=== PATIENT | female | born 1985 | race Caucasian/White ===

== ENCOUNTER 2017-07-09 00:11 | Emergency (ER) | payer SELFPAY ==
[~2017-07-09 00:11] MED LIST: ALPR1TAB2 PO
[2017-07-09] MEDS ORDERED: HYDROCODONE/ACETAMINOPHEN 10/325 MG TAB ONE (01:21)
== END 2017-07-09 02:18 | disposition home or self-care (01) ==
LOC: EDH 00:11
DX: S43.492A Other sprain of left shoulder joint, initial encounter (principal); J45.909 Unspecified asthma, uncomplicated; Z88.0 Allergy status to penicillin; Z72.0 Tobacco use; W18.39XA Other fall on same level, initial encounter; Y93.89 Activity, other specified; Y92.89 Other specified places as the place of occurrence of the external cause; Y99.8 Other external cause status
CPT/HCPCS: 73030

== ENCOUNTER 2017-08-20 08:36 | Emergency (ER) | payer MEDICAID, OTHER ==
[2017-08-20 09:44] LABS: APPEARANCE,URINE Clear (CLEAR); BILIRUBIN,URINE Negative (NEGATIVE); COLOR,URINE Yellow (YELLOW); GLUCOSE, URINE (UA) Negative (NEGATIVE); KETONES,URINE Negative (NEGATIVE); LEUKOCYTE ESTERASE ,URINE Negative (NEGATIVE); NITRATE,URINE Negative (NEGATIVE); OCCULT BLOOD,URINE Negative (NEGATIVE); PROTEIN,URINE Negative (NEGATIVE)
[2017-08-20] MEDS ORDERED: ACETAMINOPHEN EXTRA STRENGTH 500 MG TABLET ONE (10:46)
== END 2017-08-20 10:49 | disposition home or self-care (01) ==
LOC: EDH 08:36
DX: J06.9 Acute upper respiratory infection, unspecified (principal); J45.909 Unspecified asthma, uncomplicated; F43.10 Post-traumatic stress disorder, unspecified; Z72.0 Tobacco use; Z88.0 Allergy status to penicillin
CPT/HCPCS: 81003; 81025; 87804

== ENCOUNTER 2017-11-09 21:02 | Emergency (ER) | payer MEDICAID ==
[2017-11-09 22:57] LABS: APPEARANCE,URINE Clear (CLEAR); BILIRUBIN,URINE Negative (NEGATIVE); COLOR,URINE Yellow (YELLOW); GLUCOSE, URINE (UA) Negative (NEGATIVE); KETONES,URINE Negative (NEGATIVE); LEUKOCYTE ESTERASE ,URINE Negative (NEGATIVE); NITRATE,URINE Negative (NEGATIVE); OCCULT BLOOD,URINE Negative (NEGATIVE); PROTEIN,URINE Negative (NEGATIVE); UROBILINOGEN,URINE 0.2 mg/dL (0.2-1.0)
[2017-11-09 23:05] LABS: AMPHET/METH SCREEN,URINE NEGATIVE (NEGATIVE); BARBITURATE SCREEN, URINE NEGATIVE (NEGATIVE); BENZODIAZEPINES SCREEN,URINE POSITIVE (NEGATIVE); CANNABINOID SCREEN,URINE NEGATIVE (NEGATIVE); COCAINE SCREEN,URINE POSITIVE (NEGATIVE); OPIATE SCREEN,URINE POSITIVE (NEGATIVE); PHENCYCLIDINE SCREEN,URINE NEGATIVE (NEGATIVE)
== END 2017-11-09 21:32 | disposition home or self-care (01) ==
LOC: EDH 21:02
DX: M62.830 Muscle spasm of back (principal); J45.909 Unspecified asthma, uncomplicated; F43.10 Post-traumatic stress disorder, unspecified; Z88.0 Allergy status to penicillin; Z90.710 Acquired absence of both cervix and uterus; Z90.49 Acquired absence of other specified parts of digestive tract; Z72.0 Tobacco use
CPT/HCPCS: 72100; 80305; 81003

== ENCOUNTER 2017-11-23 19:15 | Emergency (ER) | payer MEDICAID ==
[2017-11-23] MEDS ORDERED: IBUPROFEN 200 MG TAB ONE (19:40)
[2017-11-23] MEDS ORDERED: IBUPROFEN 400 MG TABLET ONE (19:40)
[2017-11-23] MEDS ORDERED: TETANUS/DIPHTHERIA TOXOID [ADULT] 0.5 ML VIAL IM ONE (19:41)
[2017-11-23] MEDS ORDERED: LIDOCAINE HCL 2% 20ML ONE (20:11)
== END 2017-11-23 20:57 | disposition home or self-care (01) ==
LOC: EDH 19:15
DX: S81.831A Puncture wound without foreign body, right lower leg, initial encounter (principal); J45.909 Unspecified asthma, uncomplicated; F43.10 Post-traumatic stress disorder, unspecified; Z88.0 Allergy status to penicillin; Z72.0 Tobacco use; W20.8XXA Other cause of strike by thrown, projected or falling object, initial encounter; Y93.89 Activity, other specified; Y92.098 Other place in other non-institutional residence as the place of occurrence of the external cause; Y99.8 Other external cause status
CPT/HCPCS: 73590; 90471; 90714; 99284; J3490

== ENCOUNTER 2018-02-24 19:00 | Emergency (ER) | payer MEDICAID ==
[2018-02-24] MEDS ORDERED: KETOROLAC TROMETHAMINE 30MG/ML ONE (19:55)
[2018-02-24] MEDS ORDERED: HYDROXYZINE HCL 25 MG TABLET ONE (20:04)
== END 2018-02-24 20:31 | disposition home or self-care (01) ==
LOC: EDH 19:00
DX: S60.021A Contusion of right index finger without damage to nail, initial encounter (principal); S60.031A Contusion of right middle finger without damage to nail, initial encounter; J45.909 Unspecified asthma, uncomplicated; F32.9 Major depressive disorder, single episode, unspecified; F43.10 Post-traumatic stress disorder, unspecified; Z88.0 Allergy status to penicillin; Z90.49 Acquired absence of other specified parts of digestive tract; Z90.710 Acquired absence of both cervix and uterus; Z72.0 Tobacco use; X58.XXXA Exposure to other specified factors, initial encounter; Y93.89 Activity, other specified; Y92.099 Unspecified place in other non-institutional residence as the place of occurrence of the external cause; Y99.8 Other external cause status
CPT/HCPCS: 73130; 96372; 99284; J1885

== ENCOUNTER 2018-02-28 02:38 | Emergency (ER) | payer MEDICAID ==
[2018-02-28] MEDS ORDERED: TETANUS/DIPHTHERIA TOXOID [ADULT] 0.5 ML VIAL IM ONE (02:57)
== END 2018-02-28 03:32 | disposition home or self-care (01) ==
LOC: EDH 02:38
DX: S51.811A Laceration without foreign body of right forearm, initial encounter (principal); J45.909 Unspecified asthma, uncomplicated; F41.9 Anxiety disorder, unspecified; F32.9 Major depressive disorder, single episode, unspecified; F43.10 Post-traumatic stress disorder, unspecified; Z90.49 Acquired absence of other specified parts of digestive tract; Z90.710 Acquired absence of both cervix and uterus; Z72.0 Tobacco use; Z88.0 Allergy status to penicillin; X78.8XXA Intentional self-harm by other sharp object, initial encounter; Y93.89 Activity, other specified; Y92.098 Other place in other non-institutional residence as the place of occurrence of the external cause; Y99.8 Other external cause status
CPT/HCPCS: 12002; 90471; 90714

== ENCOUNTER 2018-03-03 01:59 | Emergency (ER) | payer MEDICAID ==
[2018-03-03] MEDS ORDERED: DOXYCYCLINE HYCLATE 100 MG TABLET PO ONE (03:25)
== END 2018-03-03 03:41 | disposition home or self-care (01) ==
LOC: EDH 01:59
DX: T81.33XA Disruption of traumatic injury wound repair, initial encounter (principal); J45.909 Unspecified asthma, uncomplicated; F43.10 Post-traumatic stress disorder, unspecified; F41.9 Anxiety disorder, unspecified; F32.9 Major depressive disorder, single episode, unspecified; Z88.0 Allergy status to penicillin; Z72.0 Tobacco use; Y83.8 Other surgical procedures as the cause of abnormal reaction of the patient, or of later complication, without mention of misadventure at the time of the procedure; Y92.89 Other specified places as the place of occurrence of the external cause
CPT/HCPCS: 73130

== ENCOUNTER 2018-03-14 10:28 | Emergency (ER) | payer MEDICAID | END 2018-03-14 11:21 | disposition home or self-care (01) | LOC: EDH 10:28 | DX: S51.811D Laceration without foreign body of right forearm, subsequent encounter (principal); J45.909 Unspecified asthma, uncomplicated; F43.10 Post-traumatic stress disorder, unspecified; F41.9 Anxiety disorder, unspecified; F32.9 Major depressive disorder, single episode, unspecified; Z88.0 Allergy status to penicillin; Z90.710 Acquired absence of both cervix and uterus; Z72.0 Tobacco use; X58.XXXD Exposure to other specified factors, subsequent encounter | CPT/HCPCS: 99281 ==

== ENCOUNTER 2018-06-12 14:36 | Emergency (ER) | payer MEDICAID ==
[2018-06-12] MEDS ORDERED: ACETAMINOPHEN-CODEINE 300/30MG TAB ONE (16:03)
== END 2018-06-12 16:11 | disposition home or self-care (01) ==
LOC: EDH 14:36
DX: S61.412A Laceration without foreign body of left hand, initial encounter (principal); F41.9 Anxiety disorder, unspecified; J45.909 Unspecified asthma, uncomplicated; F43.10 Post-traumatic stress disorder, unspecified; F32.9 Major depressive disorder, single episode, unspecified; Z88.0 Allergy status to penicillin; Z72.0 Tobacco use; W26.0XXA Contact with knife, initial encounter; Y93.89 Activity, other specified; Y92.69 Other specified industrial and construction area as the place of occurrence of the external cause; Y99.8 Other external cause status
CPT/HCPCS: 12001; 73130

== ENCOUNTER 2019-04-09 21:44 | Emergency (ER) | payer MEDICAID, OTHER ==
[2019-04-09] MEDS ORDERED: KETOROLAC TROMETHAMINE 60 MG/2 ML VIAL ONE (22:46)
[2019-04-09] MEDS ORDERED: DEXAMETHASONE SOD PHOSPHATE 10MG/ML 1ML VIAL ONE (22:46)
== END 2019-04-10 00:04 | disposition home or self-care (01) ==
LOC: EDH 21:44
DX: M25.562 Pain in left knee (principal); F41.9 Anxiety disorder, unspecified; J45.909 Unspecified asthma, uncomplicated; F32.9 Major depressive disorder, single episode, unspecified; F43.10 Post-traumatic stress disorder, unspecified; Z90.49 Acquired absence of other specified parts of digestive tract; Z90.710 Acquired absence of both cervix and uterus; Z72.0 Tobacco use
CPT/HCPCS: 29505; 73562; 96372 ×2; 99284; J1100; J1885

== ENCOUNTER 2019-08-14 17:40 | Inpatient (IN) | payer OTHER ==
[~2019-08-14] VITALS: Ht 170.2 cm; Wt 66.8 kg
[2019-08-14 18:53] LABS: BASOPHILS % (AUTO) 0.3 % (0.0-5.0); EOSINOPHILS % (AUTO) 0.3 % (0.0-8.0); HEMATOCRIT 38.8 % (36-48); LYMPHOCYTES % (AUTO) 8.5 % (21.0-51.0); MEAN CORPUSCULAR HEMOGLOBIN 31.6 pg (27.0-33.0); MEAN CORPUSCULAR HGB CONC 33.5 g/dL (32.0-36.0); MEAN CORPUSCULAR VOLUME 94.4 fL (79-99); MONOCYTES % (AUTO) 5.1 % (3.0-13.0); NEUTROPHILS % (AUTO) 85.4 % (40.0-77.0); PLATELET COUNT (AUTO) 208 K/uL (130-400); RED BLOOD CELL COUNT(AUTO) 4.11 MIL/uL (4.00-5.50); RED CELL DISTRIBUTION WIDTH 12.4 % (11.0-15.5); WHITE BLOOD COUNT (AUTO) 11.9 K/uL (4.8-10.8)
[2019-08-14 18:56] LABS: APPEARANCE,URINE Clear (CLEAR); BILIRUBIN,URINE Negative (NEGATIVE); COLOR,URINE Yellow (YELLOW); GLUCOSE, URINE (UA) Negative (NEGATIVE); KETONES,URINE Negative (NEGATIVE); LEUKOCYTE ESTERASE ,URINE Moderate (NEGATIVE); NITRATE,URINE Negative (NEGATIVE); OCCULT BLOOD,URINE Negative (NEGATIVE); PROTEIN,URINE Trace mg/dL (NEGATIVE); UROBILINOGEN,URINE 0.2 mg/dL (0.2-1.0)
[2019-08-14 19:03] LABS: AMPHET/METH SCREEN,URINE NEGATIVE (NEGATIVE); BARBITURATE SCREEN, URINE NEGATIVE (NEGATIVE); BENZODIAZEPINES SCREEN,URINE POSITIVE (NEGATIVE); CANNABINOID SCREEN,URINE NEGATIVE (NEGATIVE); COCAINE SCREEN,URINE NEGATIVE (NEGATIVE); OPIATE SCREEN,URINE NEGATIVE (NEGATIVE); PHENCYCLIDINE SCREEN,URINE NEGATIVE (NEGATIVE)
[2019-08-14 19:04] LABS: PARTIAL THROMBOPLASTIN TIME 24.9 SEC (26.3-35.5)
[2019-08-14] MEDS ORDERED: LORAZEPAM 2 MG/ML 1 ML VIAL ONE (19:06)
[2019-08-14 19:07] LABS: CARBON DIOXIDE 23 mmol/L (21-32); CHLORIDE 98 mmol/L (101-111); CREATININE 0.8 mg/dL (0.5-1.5); GLOMERULAR FILTR. RATE CALC 86 mL/min (>60); GLUCOSE,RANDOM 101 mg/dL (70-105); POTASSIUM 3.9 mmol/L (3.5-5.1); SODIUM SERUM 132 mmol/L (136-145); UREA NITROGEN, BLOOD 3 mg/dL (7-18)
[2019-08-14] MEDS ORDERED: FOSPHENYTOIN SODIUM 500 MG/10ML VIAL IJ ONE (19:09)
[2019-08-14 19:11] LABS: ACETAMINOPHEN 12 mcg/mL (10-30); ALANINE AMINOTRANSFERASE 83 U/L (12-78); ALBUMIN 3.8 g/dL (3.5-5.0); ALCOHOL, BLOOD < 3 mg/dL (0-10); ASPARTATE AMINOTRANSFERASE 42 U/L (10-37); BILIRUBIN,TOTAL 0.2 mg/dL (0.2-1.0); CREATINE KINASE, TOTAL 64 U/L (21-232); SALICYLATE 5.5 mg/dL (2.8-20.0); TOTAL PROTEIN, SERUM 7.4 g/dL (6.0-8.3)
[2019-08-14] MEDS ORDERED: SODIUM CHLORIDE 0.9% 100 ML IV ONE (19:12)
[2019-08-14] MEDS ORDERED: SODIUM CHLORIDE 0.9% 1000ML 1,000 ML IV ONE ×2 (19:20→23:13)
[2019-08-14] MEDS ORDERED: CEFTRIAXONE SODIUM 1 GM ONE (19:20)
[2019-08-14] MEDS ORDERED: SODIUM CHLORIDE 0.9% 50 ML IV ONE (19:21)
[2019-08-14 19:27] LABS: INR 0.98 (0.85-1.15); PROTHROMBIN TIME 10.3 SEC (9.6-11.6)
[2019-08-14 19:31] LABS: RBC,URINE 0-1 /HPF (0-1)
[2019-08-14 19:33] LABS: BACTERIA,URINE Few /HPF (None Seen); SQUAMOUS EPITHELIAL CELL,UR Few /HPF (0-2)
[2019-08-14 19:34] LABS: MUCUS,URINE Rare LPF (None Seen)
[2019-08-14] MEDS ORDERED: ACETAMINOPHEN 325 MG TAB ONE (19:58)
[2019-08-14 22:26] LABS: CREATINE KINASE, TOTAL 111 U/L (21-232); MYOGLOBIN 57 ng/mL (10-92); TROPONIN I < 0.04 ng/mL (0.00-0.06)
[2019-08-14] MEDS ORDERED: IBUPROFEN 200 MG TAB PO PRN ×2 (22:30)
[2019-08-14] MEDS ORDERED: MAGNESIUM 2GM PREMIX 50ML 50 ML IV SCH (22:30)
[2019-08-14] MEDS ORDERED: NITROGLYCERIN 0.4 MG SL TAB SL PRN (23:00)
[2019-08-14] MEDS ORDERED: ONDANSETRON HCL 4 MG/2 ML VIAL IV PRN (23:00)
[2019-08-14] MEDS ORDERED: DiphenhydrAMINE HCL 50 MG/ML VIAL IV PRN (23:00)
[2019-08-14] MEDS ORDERED: ACETAMINOPHEN 325 MG TAB PO PRN ×2 (23:00)
[2019-08-14] MEDS ORDERED: MAGNESIUM 2GM PREMIX 50ML 50 ML IV ONE (23:11)
[2019-08-14] MEDS ORDERED: IBUPROFEN 400 MG TABLET ONE (23:12)
[2019-08-15 03:00] VITALS: BP 110/67
[2019-08-15 04:00] VITALS: BP_SYST 104; BP_SYST 106; BP_DIAS 51; BP_DIAS 64; BP_DIAS 67
[2019-08-15] MEDS: SODIUM CHLORIDE 0.9% 1000ML 1,000 ML IV SCH ×2 (06:53→17:48)
[2019-08-15 06:54] LABS: HEMATOCRIT 36.2 % (36-48); MEAN CORPUSCULAR HGB CONC 32.9 g/dL (32.0-36.0); MEAN CORPUSCULAR VOLUME 94.3 fL (79-99); PLATELET COUNT (AUTO) 199 K/uL (130-400); RED BLOOD CELL COUNT(AUTO) 3.84 MIL/uL (4.00-5.50); RED CELL DISTRIBUTION WIDTH 12.6 % (11.0-15.5); WHITE BLOOD COUNT (AUTO) 9.5 K/uL (4.8-10.8)
[2019-08-15 07:26] LABS: ALBUMIN 3.4 g/dL (3.5-5.0); BILIRUBIN,TOTAL 0.2 mg/dL (0.2-1.0); CREATININE 0.7 mg/dL (0.5-1.5); MAGNESIUM 2.3 mg/dL (1.80-2.40); POTASSIUM 3.7 mmol/L (3.5-5.1); TOTAL PROTEIN, SERUM 6.6 g/dL (6.0-8.3)
[2019-08-15 07:34] LABS: CREATINE KINASE, TOTAL 170 U/L (21-232); MYOGLOBIN 36 ng/mL (10-92); TROPONIN I < 0.04 ng/mL (0.00-0.06)
[2019-08-15 08:00] VITALS: BP 114/70
[2019-08-15] MEDS: FAMOTIDINE 20MG TAB 20 MG TAB PO SCH ×2 (08:37→21:01)
[2019-08-15] MEDS: ENOXAPARIN SODIUM 30 MG/0.3 ML SQ SCH (08:39)
[2019-08-15 10:31] LABS: LYMPHOCYTES % (MANUAL) 19 % (22-44); MAN.DIFF COMMENT-IMPRESSION MANUAL DIFFERENTIAL; MONOCYTES % (MANUAL) 7 % (2-9); PLATELET MORPHOLOGY COMMENT ADEQUATE; SEGMENTED NEUTROPHILS % 74 % (40-70)
[2019-08-15 11:15] VITALS: BP 108/66
[2019-08-15] MEDS ORDERED: MORPHINE SULFATE 2 MG/ML 1ML SYG IVP SCH (11:30)
[2019-08-15] MEDS ORDERED: KETOROLAC TROMETHAMINE 15MG/ML IV SCH (11:30)
[2019-08-15] MEDS ORDERED: GADODIAMIDE 10 MMOL/20 ML VIAL IV ONE (11:47)
[2019-08-15 16:00] VITALS: BP_SYST 112; BP_SYST 136; BP_DIAS 69; BP_DIAS 99
--- NOTE | 2019-08-15 19:13 | NUR ---
cm note met with patient and states that pt resides at home with daughter and parents, independent with adls and ambulation. no dme. dc plan [place] back [place]. provided with [facility] [employer], [employer] info. verbalizes understanding. Addendum: 08/15/19 at 1916 by PEPE SALAS CM Amended: Links added.
[2019-08-15 19:15] VITALS: BP 112/69
[2019-08-16] VITALS (7 sets, daily range): BP systolic 107–121; BP diastolic 66–78
[2019-08-16] MEDS: SODIUM CHLORIDE 0.9% 1000ML 1,000 ML IV SCH (06:27)
[2019-08-16 06:34] LABS: BASOPHILS % (AUTO) 0.6 % (0.0-5.0); HEMATOCRIT 34.7 % (36-48); LYMPHOCYTES % (AUTO) 27.2 % (21.0-51.0); MEAN CORPUSCULAR HEMOGLOBIN 31.1 pg (27.0-33.0); MEAN CORPUSCULAR HGB CONC 32.6 g/dL (32.0-36.0); MEAN CORPUSCULAR VOLUME 95.6 fL (79-99); MONOCYTES % (AUTO) 9.6 % (3.0-13.0); NEUTROPHILS % (AUTO) 60.3 % (40.0-77.0); PLATELET COUNT (AUTO) 170 K/uL (130-400); RED BLOOD CELL COUNT(AUTO) 3.63 MIL/uL (4.00-5.50); RED CELL DISTRIBUTION WIDTH 12.8 % (11.0-15.5); WHITE BLOOD COUNT (AUTO) 6.4 K/uL (4.8-10.8)
[2019-08-16 06:53] LABS: CREATININE 0.6 mg/dL (0.5-1.5); MAGNESIUM 1.6 mg/dL (1.80-2.40); POTASSIUM 3.6 mmol/L (3.5-5.1)
[2019-08-16] MEDS: ENOXAPARIN SODIUM 30 MG/0.3 ML SQ SCH (09:00)
[2019-08-16] MEDS: FAMOTIDINE 20MG TAB 20 MG TAB PO SCH (13:08)
[2019-08-16] MEDS ORDERED: ALPRAZOLAM 1 MG TAB PO ONE (15:10)
--- NOTE | 2019-08-16 15:45 | NUR ---
HOSPITALIST PAGED PATIENT IS ADAMANT SHE WANT TO BE DISCHARGED TODAY AND WANTS HOSPITALIST TO SEE HER SOON. DIRECTOR MICHAEL NOTIFIED WHO TOLD ME HE CONTACTED HOSPITALIST.
--- NOTE | 2019-08-16 17:00 | NUR ---
AGAINST MEDICAL ADVICE PATIENT INFORMED THE HOSPITALIST IS ON THE WAY. PATIENT STATES "I CANNOT WAIT ANY LONGER. I HAVE TO LEAVE, MY MOM IS ALREADY WAITING FOR ME DOWNSTAIRS." PATIENT REFUSED TO SIGN AGAINST MEDICAL ADVICE FORM. PATIENT HAS NO IV IN PLACE.
== END 2019-08-16 17:15 | disposition left against medical advice (07) | DRG 101 ==
LOC: EDH 17:40 → EDHIP 17:41 → UNDOADMOB 21:47 → OBSVTOIN 21:47 → INTOOBSV 21:47 → 3AH 08-15 02:16
PROVIDERS: ADMIT Hospitalist; ATTEND Hospitalist
DX: G40.909 Epilepsy, unspecified, not intractable, without status epilepticus (principal); F43.10 Post-traumatic stress disorder, unspecified; F32.9 Major depressive disorder, single episode, unspecified; J45.909 Unspecified asthma, uncomplicated; F17.210 Nicotine dependence, cigarettes, uncomplicated; E83.42 Hypomagnesemia; Z90.710 Acquired absence of both cervix and uterus; Z88.0 Allergy status to penicillin; Z82.5 Family history of asthma and other chronic lower respiratory diseases; Z82.49 Family history of ischemic heart disease and other diseases of the circulatory system
CPT/HCPCS: 36415; 70450; 70553; 80048; 80053; 80061; 80305; 81001; 82550; 83735; 83874; 84484; 85025; 85610; 85730; 87088; 93005; 99291; A9579; G0378; G0480; G0481; J0696; J1650; J1885; J2060; J3475; J7030; Q2009

== ENCOUNTER 2019-12-05 00:46 | Emergency (ER) | payer MEDICAID ==
[2019-12-05 01:22] LABS: BASOPHILS % (AUTO) 0.4 % (0.0-5.0); HEMATOCRIT 39.4 % (36-48); LYMPHOCYTES % (AUTO) 36.4 % (21.0-51.0); MONOCYTES % (AUTO) 7.3 % (3.0-13.0); NEUTROPHILS % (AUTO) 53.7 % (40.0-77.0); PLATELET COUNT (AUTO) 235 K/uL (130-400); RED BLOOD CELL COUNT(AUTO) 4.06 MIL/uL (4.00-5.50); RED CELL DISTRIBUTION WIDTH 12.3 % (11.0-15.5); WHITE BLOOD COUNT (AUTO) 9.2 K/uL (4.8-10.8)
[2019-12-05 01:33] LABS: CREATININE 0.9 mg/dL (0.5-1.5); POTASSIUM 3.7 mmol/L (3.5-5.1)
[2019-12-05 01:37] LABS: ALBUMIN 3.2 g/dL (3.5-5.0); BILIRUBIN,TOTAL 0.1 mg/dL (0.2-1.0); TOTAL PROTEIN, SERUM 6.3 g/dL (6.0-8.3)
[2019-12-05 02:13] LABS: APPEARANCE,URINE Cloudy (CLEAR); BILIRUBIN,URINE Negative (NEGATIVE); COLOR,URINE Yellow (YELLOW); GLUCOSE, URINE (UA) Negative (NEGATIVE); KETONES,URINE Negative (NEGATIVE); LEUKOCYTE ESTERASE ,URINE Trace (NEGATIVE); NITRATE,URINE Negative (NEGATIVE); OCCULT BLOOD,URINE Negative (NEGATIVE); PROTEIN,URINE Negative (NEGATIVE); UROBILINOGEN,URINE 0.2 mg/dL (0.2-1.0)
[2019-12-05 02:18] LABS: HCG,QUAL RESULT NEGATIVE (NEGATIVE)
[2019-12-05 02:21] LABS: AMPHET/METH SCREEN,URINE NEGATIVE (NEGATIVE); BARBITURATE SCREEN, URINE NEGATIVE (NEGATIVE); BENZODIAZEPINES SCREEN,URINE POSITIVE (NEGATIVE); CANNABINOID SCREEN,URINE NEGATIVE (NEGATIVE); COCAINE SCREEN,URINE POSITIVE (NEGATIVE); OPIATE SCREEN,URINE NEGATIVE (NEGATIVE); PHENCYCLIDINE SCREEN,URINE NEGATIVE (NEGATIVE)
[2019-12-05 02:26] LABS: BACTERIA,URINE Few /HPF (None Seen); RBC,URINE 0-1 /HPF (0-1)
== END 2019-12-05 12:52 | disposition short-term general hospital (02) ==
LOC: EDH 00:46
DX: R45.851 Suicidal ideations (principal); R45.850 Homicidal ideations; F41.9 Anxiety disorder, unspecified; J45.909 Unspecified asthma, uncomplicated; F32.9 Major depressive disorder, single episode, unspecified; Z90.49 Acquired absence of other specified parts of digestive tract; Z90.710 Acquired absence of both cervix and uterus; Z72.0 Tobacco use; Z88.0 Allergy status to penicillin
CPT/HCPCS: 36415; 80053; 80305; 81001; 81025; 85025; 99285; G0480; G0481

== ENCOUNTER 2025-01-26 00:28 | Emergency (ER) | payer MEDICAID, OTHER ==
[~2025-01-26] VITALS: Ht 170.2 cm; Wt 62.6 kg
[2025-01-26 00:29] VITALS: BP 140/83; PULSE 85; RESP 18; TEMP 97.3
--- NOTE | 2025-01-26 01:05 | ERN ---
General Chief Complaint: Knee Injury/Swelling Stated Complaint: C/O PAIN WITH SWELLING TO RIGHT KNEE Time Seen by MD: 00:30 Time Seen by Midlevel: 00:30 Source: patient History of Present Illness Initial Comments 39-year-old female who presents to the emergency department due to right knee pain. Patient reports she slid off the truck on Friday landed incorrectly and felt her knee hyperextend. Reports painful weight-bearing and ambulation. Denies significant past medical history. Allergies: Coded Allergies: Penicillins (Unverified Allergy, Severe, SWELLING, 07/10/16) TRACHEA WAS CLOSING Home Meds Reported Medications Alprazolam (Xanax) 1 Mg Tablet, 1 MG PO TID, TAB 07/10/16 Past Medical History Past Medical History: No Pertinent History Past Surgical History: Appendectomy, Hysterectomy ROS Dictation Constitutional: Negative for fever,chills, and weight loss Eyes: Negative for injury, pain,redness, and discharge ENT: Negative for injury,pain or swelling Cardiovascular: Negative for chest pain, palpitations, and edema Respiratory: Negative for shortness of breath, cough, and wheezing, Abdomen/GI: Negative for abdominal pain, nausea, vomiting, diarrhea, and constipation Back: Negative for injury and pain : Negative for painful urination, bleeding or discharge MS/Extremity: Positive for right knee pain Negative for injury and deformity Skin: Negative for rash, and discoloration Neuro: Negative for headache, weakness, numbness, tingling, and seizure Psych: Negative for suicide ideation, homicidal ideation, and hallucinations Physical Exam Physical Exam Dictation General: awake, alert, no acute distress Head/Face: Normocephalic, atraumatic Eyes: PERRL, EOMI, normal conjunctiva ENT: oral cavity clear, oral mucosa moist Neck: Supple, normal range of motion Cardiovascular: RRR, normal S1/S2 Respiratory: No respiratory distress Skin: Warm, dry, normal turgor, no rash MS/Extremity: Pulses equal, no cyanosis, neurovascular intact, FROM. Right knee mild swelling, tenderness to palpation anterior medial/lateral aspect, no obvious deformities, limited range of motion restricted by pain. Neuro: COAx4, GCS 15, strength 5/5, CN 2-12 intact, normal cerebellar exam, normal gait, Psych: Normal behavior, mood, and affect normal this MDM MDM: Differential diagnosis: Sprain, strain, fracture Rationale: 39-year-old female who presents to the emergency department due to right knee pain. Patient reports she slid off the truck on Friday landed incorrectly and felt her knee hyperextend. Reports painful weight-bearing and ambulation. Denies significant past medical history. Right knee mild swelling, tenderness to palpation anterior/medial/lateral aspect, no obvious deformities, limited range of motion restricted by pain, neurovascularly intact. Ketorolac administered in the ED. x-ray obtained with no indications of fractures, dislocations, or acute abnormalities. Patient was educated on findings and diagnosis. Patient was placed on a knee immobilizer and given crutches. Advised to follow up with PCP. Return to the emergency department if any worsening symptoms. Patient verbalized understanding. Patient is stable for discharge. There are no social concerns with this patient. I independently interpreted the test that were performed, results were reviewed by me and considered findings on radiology if ordered. Medical management and examination interpretation discussions were had by me with other qualified healthcare professionals as indicated for the patient's care. ED Course Orders Procedure Category Date Status Time Knee 4+Vws Rt RAD 01/26/25 Taken 00:57 Ketorolac PHA 01/26/25 Complete Tromethamine 15mg/Ml 01:00 Current Medications Medications (Trade) Dose Ordered Sig/Gadiel Route PRN Reason Start Time Stop Time Status Last Admin Dose Admin Ketorolac Tromethamine (toRADol) 15 mg ONCE ONCE IM 01/26/25 01:00 01/26/25 01:08 DC Vital Signs Date Time Temp Pulse Resp B/P (MAP) Pulse Ox O2 Delivery O2 Flow Rate FiO2 01/26/25 00:29 97.3 85 18 140/83 100 Room Air DX & DISP Disposition: Discharge Departure Impression: Primary Impression: Knee injury Additional Impression: Knee sprain Condition: Stable Additional Instructions: Discharge home. Rest. Follow up with primary care in 24 hours. Return to the ER for any acute changes or worsening symptoms. If any medications were prescribed take as directed. Okay to continue home medications unless otherwise discussed during your visit in the emergency room today. Patient was also advised to follow-up with primary care physician in 1 to 2 days for continued monitoring. Referrals: PEEWEE PINZON MD (PCP) I performed the substantive portion of the visit. I have reviewed and personally made and approve the management plan that is documented in the notes by myself or the LAURA. I acknowledge full responsibility for the patient's management plan. ELEANOR MATHIS Jan 26, 2025 01:05
--- NOTE | 2025-01-26 02:14 | NUR ---
KNEE IMMOBILIZER APPLIED TO RT KNEE. PT TOLERATED PROCUDURE WELL. CRUTCHES PROVIDED TO PATIENT. D/C INSTRUCTIONS GIVEN TO PT. PT VERBALIZED UNDERSTANDING.
--- NOTE | 2025-01-26 02:27 | HMCIMG ---
EXAM: CR Right Knee, 3 views. CLINICAL HISTORY: Pain. COMPARISON: Radiograph of the right knee dated 03/18/2017. FINDINGS: No acute fracture or aggressive appearing osseous lesion. Joint spaces are within normal limits. There is no joint effusion appreciated. The soft tissues are unremarkable. IMPRESSION: No acute bony abnormality is evident. No interval changes. /[facility]ega
== END 2025-01-26 02:17 | disposition home or self-care (01) ==
LOC: EDH 00:28
DX: S83.91XA Sprain of unspecified site of right knee, initial encounter (principal); Z79.899 Other long term (current) drug therapy; Z88.0 Allergy status to penicillin; Z90.49 Acquired absence of other specified parts of digestive tract; Z90.710 Acquired absence of both cervix and uterus; W18.39XA Other fall on same level, initial encounter; Y93.89 Activity, other specified; Y92.89 Other specified places as the place of occurrence of the external cause; Y99.8 Other external cause status
CPT/HCPCS: 99283; 29505; 73564; 96372; J1885